=== PATIENT | male | born 1940 | race Caucasian/White ===

== ENCOUNTER 2021-08-13 22:14 | Inpatient (IN) ==
[2021-08-14] MEDS ORDERED: Acetaminophen 325 MG TABLET PO PRN (07:48)
[2021-08-14] MEDS ORDERED: Mag Hydrox/Al Hydrox/Simeth 30 ML UDC PO PRN (07:48)
[2021-08-14] MEDS ORDERED: Dextrose Gel 15 GM/37.5 ML TUBE PO PRN ×2 (07:48)
[2021-08-14] MEDS ORDERED: MOM Conc 10 ML UD.LIQ PO PRN (07:48)
[2021-08-14] MEDS ORDERED: Melatonin 3 MG TABLET PO PRN (07:48)
[2021-08-14] MEDS ORDERED: *HR* Dextrose 50 % in Water (Syg) 50 ML SYRINGE IVP PRN (07:48)
[2021-08-14] MEDS ORDERED: D5% in Water 1,000 ML IVC PRN (07:48)
[2021-08-14] MEDS ORDERED: Ondansetron 4 MG/2 ML VIAL IVP PRN (07:48)
[2021-08-14] MEDS ORDERED: Naloxone 0.4 MG/ML INJ IVP PRN (07:48)
[2021-08-14] MEDS ORDERED: Remdesivir 100 MG in 0.9 % Sodium Chloride 100 ML IVPB SCH (09:00)
[2021-08-14] MEDS ORDERED: Metoprolol XL (24 HR) Succ 25 MG TAB.ER.24H PO SCH (09:00)
[2021-08-14] MEDS: *HR* Enoxaparin 40 MG/0.4 ML SYRINGE SQ SCH (10:06)
[2021-08-14] MEDS: Insulin LISPRO 300 UNITS/3 ML VIAL SUBQ SCH ×3 (12:16→21:39)
[2021-08-14] MEDS: Ipratropium 1 PUFF INHALER IH SCH ×2 (20:25→20:47)
[2021-08-14] MEDS: carvediloL 25 MG TABLET PO SCH (21:39)
[2021-08-14] MEDS: Primidone 50 MG TABLET PO SCH (21:40)
[2021-08-14] MEDS: Remdesivir 100 MG in 0.9 % Sodium Chloride 100 ML IVPB SCH (21:40)
[2021-08-14] MEDS: Insulin DETEMIR 100 UNIT/ML X5UNITS SUBQ SCH (21:40)
[2021-08-15] MEDS: Ipratropium 1 PUFF INHALER IH SCH ×6 (00:04→20:17)
[2021-08-15 02:54] LABS: Hematocrit 34.9 % (37.5-50.1); Hemoglobin 12.2 g/dL (12.9-16.9); Mean Corpuscular Hemoglobin 31.5 pg (28.0-33.3); Mean Corpuscular Volume 90.2 fL (83.0-100.0); Mean Platelet Volume 9.1 fL (9.4-12.4); Platelet Count 220 K/mcL (140-400); Red Blood Count 3.87 M/mcL (4.19-5.50); White Blood Count 6.8 K/mcL (4.3-11.1)
[2021-08-15 03:10] LABS: BUN/Creatinine Ratio 35 (6-26); Blood Urea Nitrogen 39 mg/dL (8-23); Calcium 8.4 mg/dL (8.6-10.3); Carbon Dioxide 23 mEq/L (23-29); Chloride 102 mEq/L (98-107); Glucose 176 mg/dL (70-105); Magnesium 2.2 mg/dL (1.6-2.6); Osmolality,Calculated 292 (280-300); Potassium 4.5 mEq/L (3.5-5.1); Sodium 134 mEq/L (136-145); eGFR For African Americans > 60 (> 60); eGFR For Non-African Americans > 60 (> 60)
[2021-08-15 03:12] LABS: Albumin 3.3 g/dL (3.5-5.7); Albumin/Globulin Ratio 1.2 (1.1-2.2); Bilirubin,Indirect 0.3 mg/dL (0.0-1.0); Bilirubin,Total 0.3 mg/dL (0.3-1.0); Globulin 2.7 g/dL (2.4-3.5)
[2021-08-15] MEDS: Primidone 50 MG TABLET PO SCH ×2 (09:20→20:55)
[2021-08-15] MEDS: Aspirin 81 MG TAB.CHEW PO SCH (09:20)
[2021-08-15] MEDS: amLODIPine 5 MG TABLET PO SCH (09:20)
[2021-08-15] MEDS: carvediloL 25 MG TABLET PO SCH ×2 (09:20→20:45)
[2021-08-15] MEDS: *HR* Enoxaparin 40 MG/0.4 ML SYRINGE SQ SCH (09:21)
[2021-08-15] MEDS: Insulin LISPRO 300 UNITS/3 ML VIAL SUBQ SCH ×4 (09:22→20:55)
[2021-08-15] MEDS: Insulin DETEMIR 100 UNIT/ML X5UNITS SUBQ SCH (20:55)
[2021-08-15] MEDS: Remdesivir 100 MG in 0.9 % Sodium Chloride 100 ML IVPB SCH (20:55)
[2021-08-16] MEDS: Ipratropium 1 PUFF INHALER IH SCH ×4 (00:04→11:44)
[2021-08-16 05:32] LABS: Albumin 3.3 g/dL (3.5-5.7); Albumin/Globulin Ratio 1.2 (1.1-2.2); Bilirubin,Direct 0.1 mg/dL (0.0-0.2); Bilirubin,Indirect 0.2 mg/dL (0.0-1.0); Bilirubin,Total 0.3 mg/dL (0.3-1.0); Globulin 2.7 g/dL (2.4-3.5)
[2021-08-16] MEDS: *HR* Enoxaparin 40 MG/0.4 ML SYRINGE SQ SCH (09:16)
[2021-08-16] MEDS: Insulin LISPRO 300 UNITS/3 ML VIAL SUBQ SCH (09:16)
[2021-08-16] MEDS: carvediloL 25 MG TABLET PO SCH (09:51)
[2021-08-16] MEDS: Primidone 50 MG TABLET PO SCH (09:51)
[2021-08-16] MEDS: Aspirin 81 MG TAB.CHEW PO SCH (09:51)
[2021-08-16] MEDS: amLODIPine 5 MG TABLET PO SCH (09:51)
[2021-08-16 12:45] VITALS: BP 115/75; PULSE 63; TEMP 98.9; O2SAT 95
== END 2021-08-16 13:57 | disposition home or self-care (01) | DRG 177 ==
LOC: 3BNU → SUATTDRO 08-14 07:01
PROVIDERS: ADMIT Internal Medicine; ATTEND Internal Medicine